=== PATIENT | male | born 1990 | race Caucasian/White ===

== ENCOUNTER 2022-05-28 17:16 | Emergency (ER) | payer MEDICARE, MEDICAID, SELFPAY ==
[2022-05-28] VITALS (21 sets, daily range): BP systolic 126–176; BP diastolic 81–122; PULSE 87–104; RESP 16; TEMP 37.1; O2SAT 91–97
--- NOTE | 2022-05-28 17:41 | ED_ITS ---
HPI - General Adult General Chief complaint: Abdominal Pain Stated complaint: PAIN IN RIGHT ABDOMEN,NAUSEA Time Seen by Provider: 05/28/22 17:18 History of Present Illness HPI narrative: This 33-year-old male comes in with his mother and reports some nausea with episodes of vomiting since earlier today. He also has some nasal congestion. He has not had any fevers or diarrhea. He does not report any symptoms of dysuria. He does have some right flank pain and right upper abdominal pain. This pain is intermittent and currently not present at all. Related Data Home Medications Medication Instructions Recorded Confirmed cetirizine 10 mg tablet (24Hour 10 mg PO DAILY 05/28/22 05/28/22 Allergy) polyethylene glycol 3350 17 4 g PO DAILY 05/28/22 05/28/22 gram/dose oral powder (Miralax) Allergies Allergy/AdvReac Type Severity Reaction Status Date / Time No Known Drug Allergies Allergy Verified 05/28/22 17:23 Review of Systems Status of ROS: Reports: 10 or more systems reviewed and unremarkable except as noted in History and below Narrative: Constitutional: No fevers, no weight gain or loss. Eyes: No discharge. No vision changes. HENT: No congestion, no sore throat, no ear pain. Cardiovascular: No chest pain, no palpitations. Respiratory: No shortness of breath, no wheezes, no cough. Gastrointestinal: Intermittent right flank and upper abdominal pain on the right side. Nausea with some episodes of vomiting. No diarrhea. Genitourinary: No dysuria, no hematuria. Musculoskeletal: Normal range of motion. Skin: No rashes, no pruritis. Neurological: No dizziness, weakness, sensory change, speech change. Endo/Heme/Allergies: No bruising or bleeding. No polydipsia. Pysch: no suicidality, no anxiety, no insomnia. All other systems reviewed and are negative. Exam Narrative: Exam Narrative: Constitutional: Well-developed, well-nourished, no acute distress. HEENT: Normocephalic, atraumatic. Neck: Normal range of motion. Nontender. Supple. Heart: Regular. No murmurs. Normal rate. Intact distal pulses. Lungs: Clear to auscultation. No chest discomfort. No wheezes, rhonchi, or rales. Abdomen: Normal bowel sounds. Nontender. No rebound tenderness. I am able to palpate deeply throughout his abdomen without any particular discomfort. Genitalia: Deferred. Back: No midline tenderness. Normal range of motion. Extremities: Normal range of motion. No injury. Skin: Intact. No rash. Warm. No erythema or pallor. Neurologic: No altered sensation. No weakness. Alert and oriented. Psychiatric: No suicidality. No anxiety or depression. No insomnia. Nursing notes and vitals signs are reviewed. Const: Vital Signs, click to edit/add: Vital Signs - 24 hr 05/28/22 17:24 05/28/22 17:32 05/28/22 17:33 Temperature 98.8 F Pulse Rate 90 87 Pulse Rate [Pulse Oximeter] 88 Respiratory Rate 16 Blood Pressure 134/86 Blood Pressure [Ri ght Upper Arm] 137/93 H Pulse Oximetry 94 91 92 Oxygen Delivery Me thod Room Air 05/28/22 18:02 05/28/22 18:31 05/28/22 19:03 Temperature Pulse Rate 104 H Pulse Rate [Pulse Oximeter] Respiratory Rate Blood Pressure 151/115 H 130/83 Blood Pressure [Ri ght Upper Arm] Pulse Oximetry 95 Oxygen Delivery Me thod 05/28/22 19:14 Temperature Pulse Rate 91 Pulse Rate [Pulse Oximeter] Respiratory Rate Blood Pressure 131/96 H Blood Pressure [Ri ght Upper Arm] Pulse Oximetry 93 Oxygen Delivery Me thod Course Vital Signs Vital signs: Initial Vital Signs Temperature 98.8 F 05/28/22 17:24 Temperature Source Oral 05/28/22 17:24 Pulse Rate 88 05/28/22 17:24 Respiratory Rate 16 05/28/22 17:24 Blood Pressure 137/93 H 05/28/22 17:24 Blood Pressure Mean 107 05/28/22 17:24 Blood Pressure Position Sitting 05/28/22 17:24 Pulse Oximetry 94 05/28/22 17:24 Oxygen Delivery Method 05/28/22 17:24 Vital Signs Temperature 98.8 F 05/28/22 17:24 Pulse Rate 88 05/28/22 17:24 Respiratory Rate 16 05/28/22 17:24 Blood Pressure 137/93 H 05/28/22 17:24 Pulse Oximetry 94 05/28/22 17:24 Oxygen Delivery Method 05/28/22 17:24 Temperature 98.8 F 05/28/22 17:24 Pulse Rate 91 05/28/22 19:14 Respiratory Rate 16 05/28/22 17:24 Blood Pressure 131/96 H 05/28/22 19:14 Pulse Oximetry 93 05/28/22 19:14 Oxygen Delivery Method 05/28/22 17:24 Medical Decision Making MDM Narrative Medical decision making narrative: This patient comes in with nausea and dry heaves. Initially the plan was to give him an oral disintegrating tablet of Zofran which he did receive. However he had some significant dry heaves so an IV was placed where he received a L of normal saline and 4 mg of intravenous Zofran. This is brought better relief to his symptoms. Lab results for complete blood count returned with reassuring findings. Other lab results are pending at the end of my shift. The next ER physician will look after results but the patient will be okay to return home with a prescription for Zofran 0DT if results of these other tests are reassuring. Lab Data Labs: Lab Results 05/28/22 05/28/22 Range/Units 19:05 19:05 WBC 6.80 (4.50-11.00) K/uL RBC 6.08 H (4.30-5.90) m/uL Hgb 17.7 H (13.5-17.5) gm/dL Hct 51.5 (37.0-53.0) % MCV 85 (80-100) fL MCH 29 (26-34) pg MCHC 34 (32-36) gm/dL RDW Coeff of Polina 12.8 (11.5-15.5) % Plt Count 220 (140-440) K/uL Neut % (Auto) 87.1 H (42.0-72.0) % Lymph % (Auto) 4.3 L (20-44) % [place] % (Auto) 7.8 (0.0-11.0) % Eos % (Auto) 0.1 (0.0-7.0) % Baso % (Auto) 0.4 (0.0-3.0) % Neut # (Auto) 5.90 (1.7-7.0) K/uL Lymph # (Auto) 0.30 L (0.90-2.90) K/uL [place] # (Auto) 0.50 (0.00-0.90) K/UL Eos # (Auto) 0.01 (0.00-0.50) K/uL Baso # (Auto) 0.03 (0.00-0.30) K/uL Abs Immat Gran (auto) 0.02 (0.00-0.30) K/uL Sodium 137 (135-149) mmol/L Potassium 4.2 (3.6-5.1) mmol/L Chloride 101 (96-114) mmol/L Carbon Dioxide 29 (20-32) mmol/L BUN 15 (5-24) mg/dL Creatinine 1.0 (0.5-1.5) mg/dL Estimated GFR 103 ml/min Glucose 124 H (60-115) mg/dL Calcium 9.2 (8.4-10.6) mg/dL Total Bilirubin 1.2 (0.1-1.5) mg/dL Direct Bilirubin 0.2 (0.0-0.5) mg/dL AST 21 (12-35) U/L ALT 19 (4-50) U/L Alkaline Phosphatase 92 (40-150) U/L Total Protein 7.1 (6.0-8.3) g/dL Albumin 4.4 (3.3-5.0) g/dL Discharge Plan Discharge Clinical Impression: Gastroenteritis Patient Disposition: Home, Self-Care Condition: Improved Instructions: Gastroenteritis (ED) Additional Instructions: Take medication as needed and indicated. Increase diet as tolerated. Follow up with MD or return if worsening. Prescriptions: No Action polyethylene glycol 3350 [Miralax] 17 gram/dose powder 4 g PO DAILY cetirizine [24Hour Allergy] 10 mg tablet 10 mg PO DAILY Follow Up/Referrals: Wil Elliott MD [Primary Care Provider] - Stand Alone Forms: [employer] Info Instructions
[2022-05-28] MEDS: ONDANSETRON ODT 4 MG TAB PO (17:50)
--- NOTE | 2022-05-28 18:59 | ED.NURSE ---
M[employer] Gar[employer] 2x IV placement attempted unsuccessfully.
[2022-05-28] MEDS: ONDANSETRON 2 MG/ML inj 4 MG IVP (19:14)
[2022-05-28] MEDS: 0.9 % SODIUM CHLORIDE 1000 ml 1,000 ML IV (19:14)
[2022-05-28 19:31] LABS: Basophils Absolute Auto 0.03 K/uL (0.00-0.30); Basophils Percent Auto 0.4 % (0.0-3.0); Eosinophils Absolute Auto 0.01 K/uL (0.00-0.50); Eosinophils Percent Auto 0.1 % (0.0-7.0); Hematocrit 51.5 % (37.0-53.0); Hemoglobin* 17.7 gm/dL (13.5-17.5); Immature Granulocytes Abs Auto 0.02 K/uL (0.00-0.30); Lymphocytes Percent Auto 4.3 % (20-44); Mean Corpuscular HGB Conc 34 gm/dL (32-36); Mean Corpuscular Hemoglobin 29 pg (26-34); Mean Corpuscular Volume 85 fL (80-100); Monocytes Percent Auto 7.8 % (0.0-11.0); Neutrophils Percent Auto 87.1 % (42.0-72.0); RDW Coefficient of Variation % 12.8 % (11.5-15.5); Red Blood Count 6.08 m/uL (4.30-5.90)
[2022-05-28 19:45] LABS: Albumin* 4.4 g/dL (3.3-5.0); Chloride* 101 mmol/L (96-114); Potassium* 4.2 mmol/L (3.6-5.1); Sodium* 137 mmol/L (135-149)
[2022-05-28 19:47] LABS: Carbon Dioxide* 29 mmol/L (20-32); Estimated Glomerular Filt Rate 103 ml/min
[2022-05-28 19:48] LABS: Alanine Aminotransferase* 19 U/L (4-50); Alkaline Phosphatase* 92 U/L (40-150); Aspartate Amino Transferase* 21 U/L (12-35); Bilirubin Direct* 0.2 mg/dL (0.0-0.5); Bilirubin Total* 1.2 mg/dL (0.1-1.5); Blood Urea Nitrogen* 15 mg/dL (5-24); Calcium* 9.2 mg/dL (8.4-10.6); Glucose* 124 mg/dL (60-115); Platelet Count* 220 K/uL (140-440); Slide Review Reflex No; Total Protein* 7.1 g/dL (6.0-8.3)
--- NOTE | 2022-05-28 20:27 | W.ED.CHARTNO ---
ED Chart Note Chart Note Details Date: 05/28/22 Details: Went back to examine Mr. Wilson has has still been dry heaving and with some complaints of abdominal pain. Discussed ketorolac and normal renal function. They would be willing to proceed with ketorolac as prescribed by Dr. Ribeiro. Also give further antiemetics. Normal labs at this point. Exam of the abdomen with very active bowel sounds in tympanitic across the mid and upper abdomen. There is moderate tenderness in the left upper quadrant in the area of the stomach. Abdomen is soft. In the setting normal labs will do flat and upright of abdomen to evaluate bowel pattern.
--- NOTE | 2022-05-28 20:30 | ED.NURSE ---
Pt having periodic episodes of dry heaving. Pt BP readings noted to be higher after dry heaving episodes. Pt reports continued stomach discomfort. notified.
--- NOTE | 2022-05-28 20:39 | CRLHL7_ITS ---
For Patients: As a result of the Century Cures Act, medical imaging exams and procedure reports are released immediately into your electronic medical record. You may view this report before your referring provider. If you have questions, please contact your health care provider. Indication: Nausea vomiting Technique: Flat upright views of the abdomen and pelvis Comparison: X-rays 11/22/2016 Findings: Diffuse mild gas distended bowel loops with air seen to the level of the rectum. No free air seen. Bowel-gas pattern is nonspecific, nonobstructive. Dictated by Marivel Horton MD @ 05/28/2022 9:52:20 PM (Electronically Signed)
[2022-05-28] MEDS: diphenhydrAMINE 50 MG/ML inj 12.5 MG IVP (20:55)
[2022-05-28] MEDS: METOCLOPRAMIDE HCL 10 MG in 0.9 % SODIUM CHLORIDE 100 ml 100 ML 306 MG IVPB (21:08)
[2022-05-28 22:12] LABS: Appearance Urine Clear (Clear); Bilirubin Urine Negative (Negative); Blood Urine Negative (Negative); Color Urine Yellow (Yellow); Glucose Urine Negative (Negative); Ketones Urine 4+ (Negative); Leukocyte Esterase Urine Negative (Negative); Nitrite Urine Negative (Negative); Protein Urine Negative (Negative); Urobilinogen Urine 0.2 (0.2-1.0); pH Urine 5.5 (5.0-8.5)
[2022-05-28 22:24] LABS: Bacteria Urine Few; RBC Urine 0-2 (0-2); Squamous Epithelial Cell Urine Few (None-Few); WBC Urine 0-2 (0-5)
[2022-05-28 22:25] LABS: Mucus Urine Few
== END 2022-05-28 22:38 | disposition home or self-care (01) ==
PROVIDERS: Family Medicine; Emergency Provider Emergency Medicine Emergency Medical Services; PCP Family Medicine
DX: K52.9 Noninfective gastroenteritis and colitis, unspecified (principal)
CPT/HCPCS: 36415; 74019; 80048; 80076; 81001; 85025; 86140; 87086; 96365; 96375; 99284; A9270; J1200; J1885; J2405; J2765; J7030

== ENCOUNTER 2024-06-06 17:47 | Emergency (ER) | payer MEDICARE, MEDICAID, SELFPAY ==
[2024-06-06] VITALS (11 sets, daily range): BP systolic 103–125; BP diastolic 72–88; PULSE 87–110; RESP 18; TEMP 37.3; O2SAT 87–100; BMI 25.0
--- NOTE | 2024-06-06 18:14 | ED_ITS ---
HPI - General Adult General Date Seen: 06/06/24 Chief complaint: Nausea/Vomiting Stated complaint: vomiting Time Seen by Provider: 06/06/24 18:13 History of Present Illness HPI narrative: 33-year-old male with a history of some developmental delay (possibly CP? ), his stool is of tonsillectomy/adenoidectomy, history of Mila fundoplication as a small infant, presenting to the ER today with his mother for evaluation of nausea and vomiting and retching. Mother notes that typically when he gets a cold it will often make him nauseous and vomiting. Symptoms began last night with mild nasal congestion, mild sore throat. No fever. No cough. No shortness of breath. Overall sore throat is better today but he slightly some nasal congestion. Mother did not at home COVID test this morning and it was negative. This morning he began to have episodes of nausea and retching. It happened about every 2 hours this morning, then every 1 hour this afternoon, and with increasing frequency as the evening went on. He has had multiple episodes of nonbilious, nonbloody emesis. No diarrhea. He was having some ?gassy? abdominal pain earlier, but that is better now. No fevers. Other than feeding tube and Mila, no other abdominal surgeries. Related Data Home Medications ?Medication ?Instructions ?Recorded ?Confirmed cetirizine 10 mg tablet (24Hour 10 mg PO DAILY 05/28/22 05/28/22 Allergy) polyethylene glycol 3350 17 4 g PO DAILY 05/28/22 05/28/22 gram/dose oral powder (Miralax) Previous Rx's ?Medication ?Instructions ?Recorded metoclopramide HCl 10 mg tablet 10 mg PO Q6H PRN nausea and 06/06/24 (Reglan) vomiting #10 tabs Allergies Allergy/AdvReac Type Severity Reaction Status Date / Time No Known Drug Allergies Allergy Verified 05/28/22 17:23 PFSH PFSH Social History Smoking Status: Smoker, status unknown Do you use any of these nicotine containing products: None Second hand tobacco smoke exposure: No How often do you have a drink containing alcohol: never How often do you have six or more drinks on one occasion: Never AUDIT-C Alcohol total score: 0 Non-prescribed substance use: denies use Exam Narrative: Exam Narrative: Constitutional: Appears well-developed and well-nourished. Alert. Conversant. Non toxic. HENT: Head: Atraumatic. Nose: Nose normal. Right ear: Mastoid, pinna, canal, TM normal. Left ear: Mastoid, pinna, canal, TM normal. Mouth/Throat: Oral mucosa is clear and moist. no trismus. Pharynx normal. Tonsils surgically absent Eyes: Conjunctivae normal. EOM normal. Pupils equal, round, and reactive to light. No scleral icterus. Neck: Normal range of motion. Neck supple. No tracheal deviation present. Cardiovascular: Normal rate, regular rhythm. No gallop. No friction rub. No murmur heard. Symmetric radial artery pulses Pulmonary/Chest: Effort normal. No stridor. No respiratory distress. No wheezes. No rales. No rhonchi . No tenderness. Abdominal: Soft. Bowel sounds normal. No distension. No mass. No tenderness. No rebound. No guarding. Healed Mila fundoplication upper midline incision. Healed left upper quadrant old G-tube site. Musculoskeletal: RUE: Normal range of motion. No tenderness. No deformity LUE: Normal range of motion. No tenderness. No deformity RLE: Normal range of motion. No edema. No tenderness. No deformity LLE: Normal range of motion. No edema. No tenderness. No deformity Neurological: Alert and oriented to person, place, and time. Normal strength. CN II-VII intact. No sensory deficit. GCS eye subscore is 4. GCS verbal subscore is 5. GCS motor subscore is 6. Normal coordination Skin: Skin is warm and dry. No rash noted. No pallor. Normal capillary refill. Psychiatric: Normal mood. Normal affect. Const: Vital Signs, click to edit/add: Vital Signs - 24 hr 06/06/24 18:08 06/06/24 20:31 Temperature 99.2 F Pulse Rate [Right Pulse Oximeter] 99 Respiratory Rate 18 Blood Pressure 103/72 Blood Pressure [Ri ght Upper Arm] 125/88 Pulse Oximetry 93 Oxygen Delivery Me thod Room Air Course Course ED Course: Recheck -1899. Says he is feeling better. No further nausea. Reevaluation(s) Reevaluation #1: Recheck -194. Did well after sips of water. Still says he is feeling better. Did not want crackers (because he does have a mild sore throat). Reevaluation #2: Recheck-1999 discussed with patient and his mother. They are comfortable willing to go home and feeling better. However I would like them to do a road test 1st to make sure moving nose and re-exacerbate is nausea. After got up to walk he did have more nausea, even sitting up at bedside. Vandana ordered Vital Signs Vital signs: Initial Vital Signs Temperature 99.2 F 06/06/24 18:08 Temperature Source Temporal Artery Scan 06/06/24 18:08 Pulse Rate 99 06/06/24 18:08 Respiratory Rate 18 06/06/24 18:08 Blood Pressure 125/88 06/06/24 18:08 Blood Pressure Mean 100 06/06/24 18:08 Blood Pressure Position Sitting 06/06/24 18:08 Pulse Oximetry 93 06/06/24 18:08 Oxygen Delivery Method Room Air 06/06/24 18:08 Vital Signs Temperature 99.2 F 06/06/24 18:08 Pulse Rate 99 06/06/24 18:08 Respiratory Rate 18 06/06/24 18:08 Blood Pressure 125/88 06/06/24 18:08 Pulse Oximetry 93 06/06/24 18:08 Oxygen Delivery Method Room Air 06/06/24 18:08 Temperature 99.2 F 06/06/24 18:08 Pulse Rate 99 06/06/24 18:08 Respiratory Rate 18 06/06/24 18:08 Blood Pressure 103/72 06/06/24 20:31 Pulse Oximetry 93 06/06/24 18:08 Oxygen Delivery Method Room Air 06/06/24 18:08 Medications Administered Medications: Discontinued Medications Generic Name Dose Route Start Last Admin Trade Name Freq PRN Reason Stop Dose Admin Diphenhydramine HCl 12.5 mg 06/06/24 18:31 06/06/24 18:55 Diphenhydramine 50 Mg/Ml Inj IVP 06/06/24 18:32 12.5 mg ONCE ONE Administration Sodium Chloride 1,000 mls @ 1,000 mls/hr 06/06/24 18:45 06/06/24 18:56 0.9 % Sodium Chloride 1000 Ml IV 06/06/24 19:44 1,000 mls/hr .Q1H TWIN Administration Ketorolac Tromethamine 15 mg 06/06/24 18:31 06/06/24 18:55 Ketorolac 15 Mg/Ml Inj IVP 06/06/24 18:32 15 mg ONCE ONE Administration Metoclopramide HCl 10 mg 06/06/24 18:31 06/06/24 18:56 Metoclopramide Hcl 5 Mg/Ml Inj IVP 06/06/24 18:32 10 mg ONCE ONE Administration Ondansetron HCl 4 mg 06/06/24 20:07 06/06/24 20:16 Ondansetron 2 Mg/Ml Inj IVP 06/06/24 20:08 4 mg ONCE ONE Administration Medical Decision Making MDM Narrative Medical decision making narrative: This is a 33-year-old male with history of some developmental delay accompanied to the ER today by his mother for evaluation of nausea, vomiting, retching, and intermittent abdominal bloating. He has been ill with what is presumed to be a viral URI with nasal congestion, sore throat that began yesterday. He had a negative home-based coronavirus test. Mother notes that often when he gets a cold he then will experience nausea and vomiting and abdominal bloating. He has been to the ER for similar presentation a couple of years ago. Beginning this morning and getting worse throughout the afternoon he has had multiple episodes of vomiting at home. Here in the ER he was initially nauseous and retching. He had some improvement after Reglan. Labs are obtained and are reassuring. The normal white count but 90% neutrophils (similar to 2021). LFTs, lipase, electrolytes, kidney function are normal. Blood sugar 166. He received a L of IV saline. After 10 mg Reglan he said he was feeling better and was able to drink sips of water without any nausea or vomiting. He would not drink crackers because of his sore throat. However when the patient sat up to try to do an ambulation trial he had significant return of nausea and bloating. Recheck-after Zofran 4 mg still feeling nauseous. Abdomen is actually increasingly distended on repeat exam. Will obtain CT scan to look for bowel obstruction or other cause for nausea and distension. Compazine 10 mg IV ordered. Discussed with my oncoming partner, Dr. Roman. He will follow-up on the results of the patient's CT and determine disposition appropriately depending on findings. If the CT is normal, he will recheck the patient's symptoms. If symptoms are improved after Compazine, can discharge home. If he still nauseous, will likely require observation admission for nausea control and IV hydration. Clinical impression at this time 1. Nausea and vomiting 2. URI 3. Abdominal bloating Lab Data Labs: Lab Results 06/06/24 Range/Units 18:45 WBC 9.61 (4.50-11.00) K/uL RBC 6.46 H (4.30-5.90) m/uL Hgb 18.9 H (13.5-17.5) gm/dL Hct 55.5 H (37.0-53.0) % MCV 86 (80-100) fL MCH 29 (26-34) pg MCHC 34 (32-36) gm/dL RDW Coeff of Polina 13.0 (11.5-15.5) % Plt Count 145 (140-440) K/uL Neut % (Auto) 90.9 H (42.0-72.0) % Lymph % (Auto) 2.2 L (20-44) % [place] % (Auto) 6.2 (0.0-11.0) % Eos % (Auto) 0.2 (0.0-7.0) % Baso % (Auto) 0.2 (0.0-3.0) % Neut # (Auto) 8.70 H (1.7-7.0) K/uL Lymph # (Auto) 0.20 L (0.90-2.90) K/uL [place] # (Auto) 0.60 (0.00-0.90) K/UL Eos # (Auto) 0.02 (0.00-0.50) K/uL Baso # (Auto) 0.02 (0.00-0.30) K/uL Abs Immat Gran (auto) 0.03 (0.00-0.30) K/uL Imm/Tot Granulo (auto) 0.3 % Sodium 139 (135-149) mmol/L Potassium 4.2 (3.6-5.1) mmol/L Chloride 103 (96-114) mmol/L Carbon Dioxide 27 (20-32) mmol/L Anion Gap 9 (7-15) mEq/L BUN 14 (5-24) mg/dL Creatinine 1.0 (0.5-1.5) mg/dL Estimated Creat Clear 94.81 Estimated GFR 102 ml/min Glucose 166 H (60-115) mg/dL Calcium 9.3 (8.4-10.6) mg/dL Total Bilirubin 1.4 (0.1-1.5) mg/dL AST 22 (12-35) U/L ALT 20 (4-50) U/L Alkaline Phosphatase 88 (40-150) U/L Total Protein 7.5 (6.0-8.3) g/dL Albumin 4.8 (3.3-5.0) g/dL Lipase 34 (23-300) U/L Discharge Plan Discharge Clinical Impression: Nausea & vomiting Patient Disposition: Home w/ Parent or Adult Condition: Stable Instructions: Acute Nausea and Vomiting (ED) Additional Instructions: As we discussed you can use Zofran or Reglan if needed for nausea. Try to keep with small sips of water to stay hydrated. Drink large amounts of water and had solid foods with your feeling up to it. The if you have any concerns, or if you have uncontrolled nausea vomiting, dehydration or weakness, high fever, worsening cough or trouble breathing, or any problems, please come back to the ER right away to be rechecked. Prescriptions: New metoclopramide HCl [Reglan] 10 mg tablet 10 mg PO Q6H PRN (Reason: nausea and vomiting) Qty: 10 0RF No Action polyethylene glycol 3350 [Miralax] 17 gram/dose powder 4 g PO DAILY cetirizine [24Hour Allergy] 10 mg tablet 10 mg PO DAILY Follow Up/Referrals: Wil Elliott MD [Primary Care Provider] - Stand Alone Forms: [employer] Info Instructions
[2024-06-06] MEDS: KETOROLAC 15 MG/ML inj IVP (18:55)
[2024-06-06] MEDS: diphenhydrAMINE 50 MG/ML inj 12.5 MG IVP (18:55)
[2024-06-06] MEDS: METOCLOPRAMIDE HCL 5 MG/ML INJ 10 MG IVP (18:56)
[2024-06-06] MEDS: 0.9 % SODIUM CHLORIDE 1000 ml 1,000 ML IV ×2 (18:56→21:13)
[2024-06-06 18:57] LABS: Basophils Absolute Auto 0.02 K/uL (0.00-0.30); Basophils Percent Auto 0.2 % (0.0-3.0); Eosinophils Absolute Auto 0.02 K/uL (0.00-0.50); Eosinophils Percent Auto 0.2 % (0.0-7.0); Hematocrit 55.5 % (37.0-53.0); Hemoglobin* 18.9 gm/dL (13.5-17.5); Immature Granulocytes Abs Auto 0.03 K/uL (0.00-0.30); Immature Granulocytes Pct Auto 0.3 %; Lymphocytes Percent Auto 2.2 % (20-44); Mean Corpuscular HGB Conc 34 gm/dL (32-36); Mean Corpuscular Hemoglobin 29 pg (26-34); Mean Corpuscular Volume 86 fL (80-100); Monocytes Percent Auto 6.2 % (0.0-11.0); Neutrophils Percent Auto 90.9 % (42.0-72.0); Platelet Count* 145 K/uL (140-440); Red Blood Count 6.46 m/uL (4.30-5.90); White Blood Count* 9.61 K/uL (4.50-11.00)
[2024-06-06 19:09] LABS: Slide Review Reflex No
[2024-06-06 19:11] LABS: Albumin* 4.8 g/dL (3.3-5.0); Chloride* 103 mmol/L (96-114); Sodium* 139 mmol/L (135-149)
[2024-06-06 19:12] LABS: Potassium* 4.2 mmol/L (3.6-5.1)
[2024-06-06 19:14] LABS: Alkaline Phosphatase* 88 U/L (40-150); Anion Gap 9 mEq/L (7-15); Aspartate Amino Transferase* 22 U/L (12-35); Bilirubin Total* 1.4 mg/dL (0.1-1.5); Blood Urea Nitrogen* 14 mg/dL (5-24); Carbon Dioxide* 27 mmol/L (20-32); Est. Creatinine Clearance* 94.81; Estimated Glomerular Filt Rate 102 ml/min; Total Protein* 7.5 g/dL (6.0-8.3)
[2024-06-06 19:15] LABS: Alanine Aminotransferase* 20 U/L (4-50); Calcium* 9.3 mg/dL (8.4-10.6); Glucose* 166 mg/dL (60-115); Lipase* 34 U/L (23-300)
--- OUTSIDE RECORDS SUMMARY | 2024-06-06 19:24 | XMS_ITS | Clinical Summary ---
Author Organization [facility] Address [address] [address] Phone Care Team Providers Care Basting Marker Name Role Phone Wil Elliott MD Primary Care Provider [phone] Allergies No known active allergies Medications Medication Sig Dispensed Refills Start Date End Date Status polyethylene glycol 3350 (MIRALAX) powder Take 17 g by mouth one time a day. Mix in 8 oz of water, juice, soda, coffee, or tea prior to administration. Active loratadine (CLEAR-ATADINE) 10 MG tablet Take 10 mg by mouth one time a day. Take on an empty stomach. Active Multiple Vitamins-Minerals (MULTIVITAMIN ADULT OR) Take 1 Tab by mouth one time a day. Active [place]-3 Fatty Acids (FISH OIL) 1000 MG Capsule Take 1 Cap by mouth one time a day. Active Active Problems No known active problems Social History Tobacco Use Types Packs/Day Years Used Date Smoking Tobacco: Never Smokeless Tobacco: Never PHQ-2 Answer Date Recorded PHQ-2 Score 0 07/23/2018 Sex and Gender Information Value Date Recorded Sex Assigned at Not on file Gender Identity Not on file Sexual Orientation Not on file Obstetrics History Last Filed Vital Signs Vital Sign Reading Time Taken Comments Blood Pressure 138/96 07/13/2019 3:38 PM CDT Pulse 81 07/13/2019 3:38 PM CDT Temperature 36.8 ??C (98.3 ??F) 07/13/2019 3:04 PM CD T Respiratory Rate 14 07/13/2019 3:38 PM CDT Oxygen Saturation 99% 07/13/2019 3:38 PM CDT Inhaled Oxygen Concentration - - Weight 68.6 kg (151 lb 3.8 oz) 07/13/2019 3:04 P M CDT Height 167.6 cm (5' 6) 06/15/2018 9:59 AM CDT Body Mass Index 24.41 06/15/2018 9:59 AM CDT Plan of Treatment Health Maintenance Due Date Last Done Comments Hepatitis B Vaccine (Standin g Order) (1 of 3 - 19+ 3-dose series) 2009 PERTUSSIS (Standing Order) 2009 TETANUS (Standing Order) 2009 COVID-19 Vaccine (2022-2 4 season) 2024 Influenza Vaccine Seasonal (Standing Order) (#1) 2024 HPV Vaccine (Standing Order) Aged Out No longer eligible based on patient's age to complete this topic Pneumococcal/PCV20 Vaccine: Pediatrics (2-5 yrs) and At-Risk Patients (6-64 yrs) (Standing Order) Aged Out No longer eligible b ased on patient's age to complete this topic Care Teams Basting Marker Relationship Specialty Start Date End Date Wil Elliott MD [address] [place] [address] PCP - General Family Medicine 06/15/18
--- OUTSIDE RECORDS SUMMARY | 2024-06-06 19:24 | XMS_ITS | Clinical Summary ---
Author Organization [facility] Address [place], [place] [address] Care Team Providers Care Loss Control Representative Name Role Phone Wil Elliott MD Primary Care Provider Allergies Active Allergy Reactions Criticality Noted Date Comments Cefuroxime GI Upset 03/20/2007 Ibuprofen Other - Describe In Comment Field 08/06/2020 Has Kidney disease Pollen Extracts Itching 04/07/2017 sneezing Sulfa (Sulfonamide Antibiotics) GI Upset 08/30/2018 Medications Medication Sig Dispensed Refills Start Date End Date Status polyethylene glycoL (MIRALAX) 17 gram/dose powder daily 0 11/25/2016 Active multivitamin (MVI) tablet Take 1 tablet by mouth once daily. 0 11/25/2016 Active omega-3 fatty acids-vitamin E (FISH OIL) 1,000 mg cap Take by mouth. 0 11/25/2016 Active loratadine (CLARITIN) 10 mg tabletIndications:Se asonal allergies Take 1 tablet by mouth once daily. 0 05/23/2018 Active ascorbic acid chewable (VITAMIN C) 250 mg chew Take 1 tablet by mouth once daily. 0 06/25/2018 Active medication order composerIndications: CP (cerebral palsy), spastic (HC) Custom fitted shoe orthotics. One pair. 1 unit 11/11/2019 Active durable medical equipment (DME)Indications:CP (cerebral palsy), spastic (HC) Replacement Shoe inserts for right shoe and left shoe [facility]. The Fax number is [phone] 2 Each 01/05/2022 Active calcium carbonate (TUMS) 200 mg calcium (500 mg) chewable tablet Chew 1 Tablet by mouth 4 times daily if needed. 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 Neg work up. Overview: last approx age 18. Neg work up. Seasonal allergies Overview: prn claritin Resolved Problems Problem Noted Date Diagnosed Date Resolved Date Polycystic kidney disease 02/28/2017 NYSTAGMUS 09/03/2002 09/15/2008 Encounters Date Type Department Care Team Description 06/06/2024 Nurse Triage [facility] [address] [place] [address] Wil lEliott MD Nausea from Last 3 Months Immunizations Name Administration Dates Next Due AMB Influenza, IIV3 (Age >=3 years)(Flu Clinic Only) 07/12/2013,07/15/2011 AMB Influenza, IIV4 PF (=>6 mos Flulaval,Fluzone Fluarix)(Flu Clinic Only) 07/11/2018,07/21/2016,07/17/2015 COVID-19 vaccine (Moderna 100mcg/0.5mL) PF, MDV 09/01/2021,01/15/2021,12/18/2020 COVID-19 vaccine (TransGenRx-Bio NTech 30mcg/0.3mL) 12YO+ BIVALENT PF, MDV 01/31/2023 DT (Age < 7 years) 05/22/1996,03/21/1991 DTP 1990,1990 DTaP 09/10/1996 HIB PRP-OMP (PedvaxHIB) 11/22/1991,03/21/1991, HIB PRP-T (ActHIB,Hiberix) 11/22/1991,03/21/1991 ,1990 Hepatitis B (Peds) 03/26/2004,02/05/2004, 004 Hepatitis B, Unspecified 03/26/2004 Influenza A (H1N1), Inactivated 09/18/2009 Influenza RIV4 (Age 18+ Year s) PRESERV FREE 07/13/2023 Influenza Virus, Unspecified 07/15/2010, 06/19/2009,08/15/2007,07/31,08/24/2005,07/26/2004 Influenza, IIV3 (Age 6-35 mos) 07/15/2011 Influenza, IIV3 (Age >=3 years) 07/02/2012 Influenza, IIV4 07/13/2022,,07/13/2020,07/04,07/13/2017,07/16/2014 MENINGOCOCCAL VACCINE 2 VIAL 2MO-55YO (MENVEO) 05/17/2011 MMR 03/26/2004,11/22/1991 Meningococcal Vaccine (Menomune) 12/21/2009 Oral Polio Vaccine 05/22/1996,,1990,10/22,1990 Td (Age >=7 Years) 03/26/2004 Tdap 02/10/2022,05/17/2011 Family History Medical History Relation Name Comments Cancer-colon Neg. 1 Cancer-prostate Neg. 2 Heart Disease Neg. 3 Diabetes Neg. 4 Relation Name Status Comments Father Alive Mother Alive Neg. 1 Neg. 2 Neg. 3 Neg. 4 Social History Tobacco Use Types Packs/Day Years Used Date Smoking Tobacco: Never Smokeless Tobacco: Never Tobacco Cessation:Counseling Given: No Alcohol Use Standard Drinks/Week Comments No 0 (1 standard drink = 0.6 oz pur e alcohol) PHQ-2 Answer Date Recorded PHQ-2 TOTAL SCORE 0 01/31/2023 Social Connections Answer Date Recorded Frequency of Communication with Friends and Fami ly 0 10/31/2023 Financial Resource Strain Answer Date R ecorded Difficulty of Paying Living Expenses 3 10/31/2023 Difficulty of Paying Living Expenses Not on file 10/31/2023 Food Insecurity Answer Date Recorded Worried About Running Out of Food in the Last Ye ar 1 10/31/2023 Transportation Needs Answer Date Record ed Lack of Transportation (Medical) 1 10/31/2023 Housing Stability Answer Date Recorded Unable to Pay for Housing in the Last Year 1 10/31/2023 Sex and Gender Information Value Date Recorded Sex Assigned at Not on file Gender Identity Not on file Sexual Orientation Not on file Obstetrics History Last Filed Vital Signs Vital Sign Reading Time Taken Comments Blood Pressure 118/79 10/31/2023 2:00 PM COPPER [employer]APPER Pulse 78 10/31/2023 2:00 PM COPPER TAPPER Temperature 36.7 ??C (98.1 ??F) 01/31/2023 3:32 PM CD T Respiratory Rate 20 07/21/2019 12:11 PM CDT Oxygen Saturation 93% 10/31/2023 2:00 PM COPPER TAPPER Inhaled Oxygen Concentration - - Weight 74 kg (163 lb 3.2 oz) 10/31/2023 2:00 PM COPPER T[employer]PER Height 170.2 cm (5' 7) 01/31/2023 3:32 PM CDT Body Mass Index 25.56 01/31/2023 3:32 PM CDT Plan of Treatment Health Maintenance Due Date Last Done Comments BMI (ht and wt on same day) for age 18+ 02/01/2024 01/31/2023, 01/26/2022, 07/21/2019, Additional history exists Depression screening for age 12+ 02/05/2024 02/04/2023, 01/31/2023, 10/06/2021, Additional history exists Influenza for age 9-49 06/02/2024 3, 07/13/2022, 07/29/2021, Additional history exists Tetanus booster 02/11/2032 02/10/2022, 05/02, 03/26/2004 Tdap Completed 02/10/2022, 05/17/2011 HIV for age 15-65 Completed 01/31/2023 Hepatitis C screening for age 18-79 Completed 01/31/2023 COVID-19 vaccine series Completed 08/10/20 23, 01/31/2023, 09/01/2021, Additional history exists Pneumococcal series for age 6-64 Aged Out No longer eligible based on patient's age to complete this topic Procedures Procedure Name Priority Date/Time Associated Diagnosis Comments LC HIV-1/O/2, 4TH GENERATION Routine 01/31/2023 4:11 PM CDT Screening for HIV (human immunodeficiency virus) LC HCV ANTIBODY RFX TO QUANT PCR Routine 01/31/2023 4:11 PM CDT Need for hepatitis C screening test from Last 3 Months or Most Recently Relevant to Health Maintenance Results * LC HCV ANTIBODY RFX TO QUANT PCR (01/31/2023 4:11 PM CDT) Pathologist [facility] HCV Ab Non Reactive Non Reactive 02/04/2023 4:08 AM CDT [facility] ([facility]) Blood BLOOD SPECIMEN / Unknown Venipuncture / Unknown 01/31/2023 4:11 PM CDT 01/31/2023 4:[address] [facility] ([facility]) - 02/04/2023 4:08 AM CDT Performed at: ??01 - [address] ??[id number] Geriatric Physical Therapist: Kevin Mccallum MD, Phone: ??[phone] Wil Elliott MD LABORATORY [facility] ([facility]) [address] [place] [address], * LC HIV-1/O/2, 4TH GENERATION (01/31/2023 4:11 PM CDT) [facility] HIV Scr 4th Gen Non Reactive Non Reactive 02/04/2023 4:08 AM CDT [facility] ([facility]) Comment: HIV Negative HIV-1/HIV-2 antibodies and HIV-1 p24 antigen were NOT detected. There is no laboratory evidence of HIV infection. Blood BLOOD SPECIMEN / Unknown Venipuncture / Unknown 01/31/2023 4:11 PM CDT 01/31/2023 4:12 PM CDT [facility] ([facility]) - 02/04/2023 4:08 AM CDT Performed at: ??01 - [facility] ??[id number] Geriatric Physical Therapist: Kevin Mccallum MD, Phone: ??[phone] Wil Elliott MD [facility] [place], [place] [address] from Last 3 Months or Most Recently Relevant to Health Maintenance Care Teams Loss Control Representative Relationship Specialty Start Date End Date Wil Elliott MD [address] [place] [address] PCP - General Family Practice 05/03/11
--- OUTSIDE RECORDS SUMMARY | 2024-06-06 19:24 | XMS_ITS | Clinical Summary ---
Author Organization [facility] Address [address] [place] [address]. [place] [address] Care Team Providers Care Environmental Services Director Name Role Phone No Ref-Primary, Physician Primary Care Provider Medications No known medications Social History Tobacco Use Types Packs/Day Years Used Date Smoking Tobacco: Never Smokeless Tobacco: Never Sex and Gender Information Value Date Recorded Sex Assigned at Not on file Gender Identity Not on file Sexual Orientation Not on file Last Filed Vital Signs Vital Sign Reading Time Taken Comments Blood Pressure 118/74 01/28/2018 12:46 PM CDT Pulse 80 01/28/2018 12:46 PM CDT Temperature 37.1 ??C (98.8 ??F) 01/28/2018 12:46 PM C DT Respiratory Rate 18 01/28/2018 12:46 PM CDT Oxygen Saturation 100% 01/28/2018 12:46 PM CDT Inhaled Oxygen Concentration - - Weight 67.6 kg (149 lb 1.6 oz) 01/28/2018 12:46 PM CDT Height - - Body Mass Index - - Plan of Treatment Not on file Care Teams Environmental Services Director Relationship Specialty Start Date End Date No Ref-Primary, Physician PCP - General 01/28/18
--- OUTSIDE RECORDS SUMMARY | 2024-06-06 19:24 | XMS_ITS | Referral Summary ---
Author Organization [place] Address [address] [place] [address]. [place] [address] Care Team Providers Care Director Of Enterprise Applications Name Role Phone No Ref-Primary, Physician Primary [...] of Treatment Not on file Care Teams Director Of Enterprise Applications Relationship Specialty Start Date End Date No Ref-Primary, Physician PCP - General 01/28/18
[2024-06-06] MEDS: ONDANSETRON 2 MG/ML inj 4 MG IVP (20:16)
--- NOTE | 2024-06-06 20:59 | CRLHL7_ITS ---
For Patients: As a result of the Century Cures Act, medical imaging exams and procedure reports are released immediately into your electronic medical record. You may view this report before your referring provider. If you have questions, please contact your health care provider. INDICATION: Vomiting, bloating, tympanic abdomen. History of polycystic kidney disease. TECHNIQUE: CT of the abdomen and pelvis acquired with 76 cc of Isovue 370 IV contrast. Coronal and sagittal reconstructions. COMPARISON: CT of the abdomen and pelvis 10/24/2021. FINDINGS: Liver: Normal in size and attenuation. No focal liver lesions. Hepatic and portal veins are patent. Gallbladder and bile ducts: Unremarkable. No biliary dilation. Spleen: Unremarkable. Pancreas: Unremarkable. Adrenal glands: Unremarkable. Kidneys: The kidneys are enlarged with multiple bilateral renal cysts compatible with history of polycystic kidney disease. No definite solid renal mass or hyperdense cyst. Symmetric nephrograms. No hydronephrosis or ureteral dilation. No obstructing urinary calculi identified. Circumferential bladder wall thickening similar to prior exam. Reproductive organs: Unremarkable. GI tract/Peritoneum: No small bowel dilation. Large amount of stool throughout the colon. Redundant sigmoid colon. Negative appendix. No intraperitoneal free air or fluid. Vasculature: Abdominal aorta is normal in caliber. Mesenteric arteries are patent. Lymph nodes: No lymphadenopathy. Abdominal Wall: Small fat containing umbilical hernia. Bones: Unremarkable. Lower chest: Motion artifact. Bibasilar atelectasis. IMPRESSION: 1. Bilateral enlarged kidneys with numerous renal cysts compatible with history of polycystic kidney disease. 2. Large amount of stool. No evidence of small bowel obstruction. 3. Bladder wall thickening is similar to prior exam and may be chronic, however correlation with urinalysis is recommended. 4. No other acute findings in the abdomen or pelvis. Please note that all CT scans at this facility use dose modulation, iterative reconstruction, and/or weight-based dosing when appropriate to reduce radiation dose to as low as reasonably achievable. Dictated by Lucila Oilva MD @ 06/06/2024 9:59:03 PM (Electronically Signed)
[2024-06-06] MEDS: PROCHLORPERAZINE 5 MG/ML VIAL 10 MG IV (21:13)
== END 2024-06-06 22:53 | disposition home or self-care (01) ==
PROVIDERS: Emergency Provider Emergency Medicine; PCP Family Medicine
DX: R11.2 Nausea with vomiting, unspecified (principal)
CPT/HCPCS: 36415; 74177; 80053; 83690; 85025; 96374; 96375; 99283; 99284; J0780; J1200; J1885; J2405; J2765; J7030; Q9967